=== PATIENT | male | born 1980 | race Caucasian/White ===

== ENCOUNTER 2022-11-24 09:16 | Emergency (ER) | payer OTHER, BC, SELFPAY ==
[2022-11-24 09:21] VITALS: BP 149/83; PULSE 98; RESP 18; TEMP 36.2; O2SAT 98; BMI 37.3
--- NOTE | 2022-11-24 09:55 | ED.WOUNDLAC ---
HPI - Wound/Laceration General Chief Complaint: Laceration/Wound Stated Complaint: A board fell on head Time Seen by Provider: 11/24/22 09:36 History of Present Illness HPI narrative: This 6-year-old male comes in with an injury to his left forehead that occurred at work just prior to arrival. A piece of wood fell down in hit him in this area of his head. He has a small irregular laceration on the left side of his forehead. There is no underlying hematoma. He did not have any loss of consciousness. He states that his tetanus status is unknown but he refuses to have a tetanus vaccination. Related Data Home Medications Medication Instructions Recorded Confirmed No Known Home Medications 11/24/22 11/24/22 Allergies Allergy/AdvReac Type Severity Reaction Status Date / Time No Known Drug Allergies Allergy Verified 11/24/22 09:26 Review of Systems Status of ROS: Reports: 10 or more systems reviewed and unremarkable except as noted in History and below Narrative: Constitutional: No fevers, no weight gain or loss. Eyes: No discharge. No vision changes. HENT: No congestion, no sore throat, no ear pain. Cardiovascular: No chest pain, no palpitations. Respiratory: No shortness of breath, no wheezes, no cough. Gastrointestinal: No abdominal pain, no vomiting, no diarrhea. Genitourinary: No dysuria, no hematuria. Musculoskeletal: Normal range of motion. Skin: No rashes, no pruritis. Neurological: No dizziness, weakness, sensory change, speech change. Endo/Heme/Allergies: No bruising or bleeding. No polydipsia. Pysch: no suicidality, no anxiety, no insomnia. All other systems reviewed and are negative. Exam Narrative: Exam Narrative: Constitutional: Well-developed, well-nourished, no acute distress. HEENT: 1 cm irregular laceration in the left forehead. Neck: Normal range of motion. Nontender. Supple. Heart: Intact distal pulses. Lungs: No chest discomfort. No wheezes, rhonchi, or rales. Abdomen: Nontender. Back: Normal range of motion. Extremities: Normal range of motion. No injury. Skin: Intact. No rash. Warm. No erythema or pallor. Neurologic: No altered sensation. No weakness. Alert and oriented. Psychiatric: No suicidality. No anxiety or depression. No insomnia. Nursing notes and vitals signs are reviewed. Const: Vital Signs, click to edit/add: Vital Signs - 24 hr 11/24/22 09:21 Temperature 97.2 F L Pulse Rate [Right Pulse Oximeter] 98 Respiratory Rate 18 Blood Pressure [Ri ght Upper Arm] 149/83 H Pulse Oximetry 98 Oxygen Delivery Me thod Room Air Course Vital Signs Vital signs: Initial Vital Signs Temperature 97.2 F L 11/24/22 09:21 Temperature Source Temporal Artery Scan 11/24/22 09:21 Pulse Rate 98 11/24/22 09:21 Respiratory Rate 18 11/24/22 09:21 Blood Pressure 149/83 H 11/24/22 09:21 Blood Pressure Mean 105 11/24/22 09:21 Blood Pressure Position Sitting 11/24/22 09:21 Pulse Oximetry 98 11/24/22 09:21 Oxygen Delivery Method 11/24/22 09:21 Vital Signs Temperature 97.2 F L 11/24/22 09:21 Pulse Rate 98 11/24/22 09:21 Respiratory Rate 18 11/24/22 09:21 Blood Pressure 149/83 H 11/24/22 09:21 Pulse Oximetry 98 11/24/22 09:21 Oxygen Delivery Method 11/24/22 09:21 Temperature 97.2 F L 11/24/22 09:21 Pulse Rate 98 11/24/22 09:21 Respiratory Rate 18 11/24/22 09:21 Blood Pressure 149/83 H 11/24/22 09:21 Pulse Oximetry 98 11/24/22 09:21 Oxygen Delivery Method 11/24/22 09:21 MDM - Wound/Laceration MDM Narrative Medical decision making narrative: This patient has a laceration on his forehead. I did discuss repair options with the patient and in a process of shared decision-making he elected to have Dermabond applied. This was applied with excellent results. Instructions regarding wound care given. He is not current on his tetanus status but declines vaccination. Discharge Plan Discharge Clinical Impression: Laceration Patient Disposition: Home, Self-Care Condition: Stable Additional Instructions: Keep wound clean and dry. Activity as tolerated. Follow up with MD or return if worsening. Prescriptions: No Action No Known Home Medications [facility]
== END 2022-11-24 10:15 | disposition home or self-care (01) ==
PROVIDERS: Emergency Provider Emergency Medicine Emergency Medical Services
DX: S01.91XA Laceration without foreign body of unspecified part of head, initial encounter (principal); W22.8XXA Striking against or struck by other objects, initial encounter
CPT/HCPCS: 12001; 99283; 99284